=== PATIENT | male | born 2000 | race Caucasian/White ===

== ENCOUNTER 2018-12-03 23:45 | Emergency (ER) | payer SELFPAY ==
[~2018-12-03] VITALS: Ht 175.3 cm; Wt 52.2 kg
[2018-12-04 00:30] VITALS: BP 126/87
[2018-12-04] MEDS ORDERED: MAGN400T5 PO (00:32)
[2018-12-04] MEDS ORDERED: NAPR-683 PO (00:32)
--- NOTE | 2018-12-04 00:33 | PHYS DOC ---
Past Medical History Past Medical History: No Pertinent History Past Surgical History: Tonsillectomy Alcohol Use: None Drug Use: None Adult General Chief Complaint Chief Complaint: ABDOMINAL PAIN [facility] Patient is a 18 year old male who presents with feeling of abdominal pain. Patient states he woke up about 12 hours ago with sudden onset of generalized abdominal pain as a sharp pain without radiation and rated his pain 8/10 that decreased to 5/10 at arrival to ER. Patient complaining of nausea without vomiting, fever and chills, urinary symptoms, history of the same pain. Patient states he usually has constipation and bowel movement every other day and had a bowel movement yesterday. Review of Systems Review of Systems Constitutional: Denies fever or chills [] Eyes: Denies change in visual acuity, redness, or eye pain [] HENT: Denies nasal congestion or sore throat [] Respiratory: Denies cough or shortness of breath [] Cardiovascular: No additional information not addressed in HPI [] GI: Reports abdominal pain, nausea, denies vomiting, bloody stools or diarrhea [] : Denies dysuria or hematuria [] Musculoskeletal: Denies back pain or joint pain [] Integument: Denies rash or skin lesions [] Neurologic: Denies headache, focal weakness or sensory changes [] Endocrine: Denies polyuria or polydipsia [] All other systems were reviewed and found to be within normal limits, except as documented in this note. Allergies Allergies Allergies Coded Allergies Type Severity Reaction Last Updated Verified nystatin Allergy Unknown 12/04/18 Yes Physical Exam Physical Exam Constitutional: Well developed, well nourished, mild distress, non-toxic appearance. [] HENT: Normocephalic, atraumatic. Eyes: PERRLA, EOMI, conjunctiva normal, no discharge. [] Neck: Normal range of motion, no tenderness, supple, no stridor. [] Cardiovascular:Heart rate regular rhythm, no murmur [] Lungs & Thorax: Bilateral breath sounds clear to auscultation [] Abdomen: Bowel sounds normal, soft, no tenderness, negative McBurney sign, no masses, no pulsatile masses. [] Skin: Warm, dry, no erythema, no rash. [] Back: No tenderness, no CVA tenderness. [] Extremities: No tenderness, no cyanosis, no clubbing, ROM intact, no edema. [] Neurologic: Alert and oriented X 3, no focal deficits noted. [] Psychologic: Affect normal, judgement normal, mood normal. [] Current Patient Data Vital Signs Vital Signs Date Time Temp Pulse Resp B/P (MAP) Pulse Ox O2 Delivery O2 Flow Rate FiO2 12/04/18 00:30 68 18 126/87 (100) 97 Room Air 12/04/18 00:09 97.8 97.8 EKG EKG [] Radiology/Procedures Radiology/Procedures [] Course & Med Decision Making Course & Med Decision Making Evaluation of patient in ER showed 18-year-old male patient with complaining of sudden onset of abdominal pain that improved at arrival to ER. Patient has history of constipation and had a bowel movement yesterday. Patient did not have tenderness in the examination of abdomen with a stable vital signs. Plan discharge patient home with diagnose of constipation. Dragon Disclaimer Dragon Disclaimer This electronic medical record was generated, in whole or in part, using a voice recognition dictation system. Departure Departure Impression: Primary Impression: Abdominal pain Additional Impression: Constipation Disposition: HOME, SELF-CARE (at 00 27) Condition: IMPROVED Referrals: BILL MIRZA MD (PCP) Patient Instructions: Abdominal Pain (Nonspecific), Constipation, Adult Additional Instructions: Drink plenty of liquids Follow-up with your primary care physician in 3-5 days Return to ER if not getting better Scripts Naproxen (NAPROSYN) 500 Mg Tablet 1 TAB PO BID for pain, #20 TAB Prov: ANUEL LONGORIA MD 12/04/18 Magnesium Oxide (MAGNESIUM OXIDE) 400 Mg Tablet 1 TAB PO BID PRN for CONSTIPATION, #14 TAB 0 Refills Prov: ANUEL LONGORIA MD 12/04/18 Problem Qualifiers Primary Impression: Abdominal pain Abdominal location: generalized Qualified Codes: R10.84 - Generalized abdominal pain Additional Impression: Constipation Constipation type: unspecified constipation type Qualified Codes: K59.00 - Constipation, unspecified ANUEL LONGORIA MD Dec 04, 2018 00:32
== END 2018-12-04 00:40 | disposition home or self-care (01) ==
LOC: ER 23:45
DX: K59.00 Constipation, unspecified (principal); Z88.8 Allergy status to other drugs, medicaments and biological substances
CPT/HCPCS: 99282